=== PATIENT | female | born 1950 | race Caucasian/White ===

== ENCOUNTER 2019-10-09 15:58 | Emergency (ER) | payer OTHER, BC ==
--- OUTSIDE RECORDS SUMMARY | 2019-10-09 16:20 | XMS REPORT | Summary of Care ---
:1950 Author Organization [facility] Address [address] [place] [address] Care Team Providers Name Role Phone Domingo Lizama Primary Care Provider Encounter Details Date Type Department Care Team Description 08/30/2019 Letter (Out) [facility] Domingo Lizama [address] [place] [address] [place] [address] [place], [place] [phone] Allergies Not on Filedocumented as of this encounter (statuses as of 08/30/2019) Medications Not on filedocumented as of this encounter (statuses as of 08/30/2019) Active Problems Not on filedocumented as of this encounter (statuses as of 08/30/2019) Social History Tobacco Use Types Packs/Day Years Used Date Never Assessed Sex Assigned at Date Recorded Not on file Job Start Date Occupation Industry Not on file Not on file Not on file Travel History Travel Start Travel End No recent travel history available. documented as of this encounter Last Filed Vital Signs Not on filedocumented in this encounter Plan of Treatment Health Maintenance Due Date Last Done Comments HEPATITIS C (HCV) SCREEN 1950 DTaP,Tdap,and Td Vaccines (1 - Tdap) 1960 Breast Cancer Screening (MAMMOGRAM) 1989 COLONOSCOPY 1999 Zoster Recombinant Vaccine (SHINGRIX) (1 of 2) 1999 Medicare Wellness Visit 2014 Osteoporosis Screening 2014 PNEUMOCOCCAL VACCINES 65+ (1 of 2 - PCV13) 2014 INFLUENZA VACCINE (#1) 2019 documented as of this encounter Results Not on filedocumented in this encounter Insurance Payer Benefit Plan / Subscriber ID Effective Phone Address T ype Group Dates MEDICARE MEDICARE PART A xxxxxxxxxxx 2014-Pre [phone] [address] [place] Medicare & B sent [phone] [id number] [place] [phone] BCBS OF [facility] [id number] 2014-Pre [phone] [facility] TRADITIONAL sent [phone] [place] [address] documented as of this encounter
--- OUTSIDE RECORDS SUMMARY | 2019-10-09 16:20 | XMS REPORT | Clinical Summary ---
:1950 Author Organization [facility] Address [address] [place] [address] Care Team Providers Name Role Phone Unavailable Primary Care Provider Unavailable Allergies Not on File Medications Not on file Active Problems Not on file Encounters Date Type Specialty Care Team Description 06/28/2019 Lab Lab Ara Thao MD after 10/08/2018 Social History Tobacco Use Types Packs/Day Years Used Date Never Assessed Sex Assigned at Date Recorded Not on file Job Start Date Occupation Industry Not on file Not on file Not on file Travel History Travel Start Travel End No recent travel history available. Last Filed Vital Signs Not on file Plan of Treatment Health Maintenance Due Date Last Done Comments BREAST CANCER SCREENING 1999 COLONOSCOPY SCREENING 1999 SHINGLES VACCINES (#1) 1999 65+ PNEUMOCOCCAL VACCINE (1 of 2 - PCV13) 2014 INFLUENZA VACCINE 12/14/2019 Procedures Procedure Name Priority Date/Time Associated Comments Diagnosis CYTOLOGY Routine 06/28/2019 10:40 Results for this (NON-GYNECOLOGICAL) AM ARSON INVESTIGATOR procedur e are in REQUEST the results section. OPHTHALMOLOGY PATHOGEN Routine 06/28/2019 10:40 R esults for this MULTIPLEX PANEL AM ARSON INVESTIGATOR procedure ar e in the results section. after 10/08/2018 Results Ophthalmology pathogen multiplex panel (06/28/2019 10:40 AM ARSON INVESTIGATOR) Cytomegalovirus by PCR, Not-Detected Not-Detected [facility] Herpes simplex virus 1 Not-Detected Not-Detected [facility] PR[facility]ESTANT by PCR, eye [facility] Herpes simplex virus 2 Not-Detected Not-Detected [place] by PCR, eye [facility] Toxoplasma gondii by Not-Detected Not-Detected [place] PCR, eye [facility] Varicella zoster virus Not-Detected Not-Detected [place] [facility] by PCR, eye [facility] Ophthalmology pathogen See link [facility] multiplex panel below for PDF HOSPITAL Lab ReportComment : Specimen Narrative Performed At [facility], right eye [facility] DEPARTMENT OF PATHOLOGY AND GENOMIC MEDICINE Performing Organization Address City/State/Zipcode Phone Number [facility] DEPARTMENT OF PATHOLOGY AND [address] [place], [place] [address] GENOMIC MEDICINE [facility] [address] [place] [address] [facility] Cytology (non-gynecological) request (06/28/2019 10:40 AM ARSON INVESTIGATOR) [facility] DEPARTMENT OF PATHOLOGY AND GENOMIC MEDICINE Cytology See link below [facility] DEPARTMENT OF (non-gynecological) for PDF Lab PATHOLOGY AND report Report GENOMIC MEDICINE Result status This is Final [facility] DEPARTMENT OF Report for PATHOLOGY AND [id number] GENOMIC MEDICINE Specimen Performing Organization Address City/State/Zipcode Phone Number [facility] DEPARTMENT OF PATHOLOGY AND [address] [place], [place] [address] GENOMIC MEDICINE after 10/08/2018 Insurance Payer Benefit Plan / Subscriber ID Effective Phone Address T ype Group Dates MEDICARE MEDICARE PART A xxxxxxxxxxx 2014-Pre [place], [place] Medicare AND B sent BCBS COMMERCIAL BCBS MEDICARE xxxxxxxxxxxx 2014-Pre Commercial SUPPLEMENT sent Advance Directives For more information, please contact: [phone] Type Date Recorded 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
--- OUTSIDE RECORDS SUMMARY | 2019-10-09 16:20 | XMS REPORT | Summary of Care ---
:1950 Author Organization [facility] Address [address] [place] [address] Care Team Providers Name Role Phone Domingo Lizama Rigo Primary Care Provider Encounter Details Date Type Department Care Team Description 07/22/2019 Orders Only [facility] Doctor Unassigned, No [address] [facility] [place] [address] [address] [place] [phone] Allergies Not on Filedocumented as of this encounter (statuses as of 07/30/2019) Medications Not on filedocumented as of this encounter (statuses as of 07/30/2019) Active Problems Not on filedocumented as of this encounter (statuses as of 07/30/2019) Social History Tobacco Use Types Packs/Day Years [...] (#1) 2019 documented as of this encounter Procedures Procedure Name Priority Date/Time Associated Diagnosis Comme nts REFERRAL- Routine 07/22/2019 12:01 AM CDT REQUEST/RESPONSE documented in this encounter Results Not on filedocumented in this encounter Insurance Payer Benefit Plan / Subscriber ID Effective Phone Address T ype Group Dates MEDICARE MEDICARE PART A xxxxxxxxxxx 2014-Pre [phone] [address] [place] Medicare & B sent [id number] [place] [phone] BCBS OF BCBS [id number] 2014-Pre [phone] [facility] TRADITIONAL sent [phone] [place] [address] documented as of this encounter
--- OUTSIDE RECORDS SUMMARY | 2019-10-09 16:20 | XMS REPORT ---
:1950 Author Organization [facility] t Address [address] [place] [address] Dr. [address]. [address] [place] [address] Care Team Providers Name Role Phone Rigo Lizama Attending Clinician Doctor Unassigned, Name Attending Clinician Unavailable Master CERVANTES LCindy Attending Clinician Payers Payer Name Policy Policy Number Effective Expiration Source Type Date Date MEDICAREMEDICARE PART xxxxxxxxxxx 2014 [facility] Jainism Hryvhwgocehz38/1/2014 [place] [place] xxxxxxxxxxxx 2014 [facility] MEDICARE 00:00:00 Jainism SUPPLEMENTxxxxxxxxxxx x1 2013-[facility] mercial Problems This patient has no known problems. Allergies, Adverse Reactions, Alerts This patient has no known allergies or adverse reactions. Social History Social Habit Start Date Stop Date Quantity Comments Source Sex Assigned At [place] stoalison Jain[facility] Medications This patient has no known medications. Procedures Procedure Date / Time Performed Performing Clinician Sour e OPHTHALMOLOGY PATHOGEN 2019-06-28 10:40:00 Ara Thao MULTIPLEX PANEL CYTOLOGY 2019-06-28 10:40:00 Ara Thao Met hodist (NON-GYNECOLOGICAL) REQUEST Plan of Care Planned Activity Planned Date Details Comments Source Future Scheduled 2019-12-14 INFLUENZA VACCINE Satinder Valdez Test 00:00:00 [code = INFLUENZA VACCINE] Future Scheduled 2014 65+ PNEUMOCOCCAL [place] [facility] Test 00:00:00 VACCINE (1 of 2 - PCV13) [code = 65+ PNEUMOCOCCAL VACCINE (1 of 2 - PCV13)] Future Scheduled 1999 BREAST CANCER Errol Shaw thodist Test 00:00:00 SCREENING [code = BREAST CANCER SCREENING] Future Scheduled 1999 COLONOSCOPY SCREENING Dinesh richmond Jainism Test 00:00:00 [code = COLONOSCOPY SCREENING] Future Scheduled 1999 SHINGLES VACCINES (#1) H estuardo Jainism Test 00:00:00 [code = SHINGLES VACCINES (#1)] Encounters Start End Encounter Admission Attending Care Care Encounter Source Date/Time Date/Time Type Type Clinicians Facility Department ID 2019-08-30 2019-08-30 Letter LUIS M Lizama [id number] 00:00:00 00:00:00 (Out) Domingo ANAYA [id number] 2019-07-22 2019-07-22 Orders Doctor LUIS M [id number] 00:00:00 00:00:00 Only Unassigned, HÉCTOR [id number] [place] [phone] [id number] Results Test Description Test Time Test Comments Results Result Comments Source Cytology (non-gynecological) request 2019-07-01 14:30:52 Test Item Value Reference Range Interpretation Comme nts Case number (test code = [id number]) [id number] Cytology (non-gynecological) report (test See link below for PDF La b Report code = 1178) Result status (test code = 8725707) This is Final Report for [id number] [facility] [id number] 19:01:48 Test Item Value Reference Range Interpretation Comments Cytomegalovirus by PCR, Not-Detected Not-Detected eye (test code = 5000-5) Herpes simplex virus 1 Not-Detected Not-Detected by PCR, eye (test code = 35383-6) Herpes simplex virus 2 Not-Detected Not-Detected by PCR, eye (test code = 88238-0) Toxoplasma gondii by Not-Detected Not-Detected PCR, eye (test code = 47494-8) Varicella zoster virus Not-Detected Not-Detected by PCR, eye (test code = 09040-9) Ophthalmology pathogen See link below Joselo e Number: multiplex panel (test for PDF Lab [id number] code = 4919) Report BRIDGER (test code = BRIDGER) aqueous, right eye Errol Valdez
[2019-10-09] MEDS ORDERED: NA CHLORIDE 0.9% 500 ML ONE (17:11)
[2019-10-09 17:13] LABS: Absolute Lymphocytes (CBC) 2.1 K/uL (0.7-4.9); Basophils % 0.3 % (0-1.3); Hematocrit 48.6 % (36.0-45.0); Lymphocytes % 22.5 % (15.3-44.8); MPV 9.7 fL (7.6-11.3); RBC Red Blood Cell Count 5.23 M/uL (3.86-4.86)
[2019-10-09 17:34] LABS: ALT/SGPT 23 U/L (12-78); AST/SGOT 18 U/L (15-37); Albumin 2.7 g/dL (3.4-5.0); Alkaline Phosphatase 58 U/L (45-117); BUN Blood Urea Nitrogen 18 mg/dL (7-18); Bicarbonate 21 mmol/L (21-32); Bilirubin Direct < 0.1 mg/dL (0-0.2); Bilirubin Total 0.2 mg/dL (0.2-1.0); Glucose Level 109 mg/dL (74-106); Lipase 310 U/L (73-393); Potassium 3.5 mmol/L (3.5-5.1); Protein, Total 6.6 g/dL (6.4-8.2); Sodium Level 143 mmol/L (136-145)
--- NOTE | 2019-10-09 18:08 | RAD REPORT ---
EXAM DESCRIPTION: CT - Abdomen Pelvis W Contrast - 10/09/2019 5:48 pm CLINICAL HISTORY: Diarrhea COMPARISON: Abdomen 1 View (KUB) dated 04/27/2017 TECHNIQUE: Biphasic, helical CT imaging of the abdomen and pelvis was performed following 100 ml non -ionic IV contrast. No oral contrast administered. All CT scans are performed using dose optimization technique as appropriate and may include automated exposure control or mA/KV adjustment according to patient size. FINDINGS: No suspicious findings in the lung bases. Liver is normal size. No solid mass lesion of the liver. Patient has multiple homogeneous fluid atten uation cysts. Largest is in the medial inferior right lobe approximately 4 cm in diameter. No pancrea s or spleen acute finding. Gallbladder and biliary tree are also without suspicious finding. Symmetric renal function is seen with no hydronephrosis or suspicious renal mass. No pyelonephritis o r acute parenchymal process. Small nonobstructing calyx or pyramid calculi present. Bilateral renal c ysts also present. No adrenal abnormalities. No urinary bladder abnormality. Uterus and ovaries also without suspicious finding. Very small hiatal hernia is seen. No acute stomach or small bowel finding. Appendix is normal. No acu te colon finding. No free air, free fluid or inflammatory stranding. No hernia, mass or bulky lymphadenopathy. Disc and bony degenerative changes are present. Partial compression fracture of L4 dates back to at l 2016. No acute vascular finding. IMPRESSION: Contrast enhanced CT abdomen and pelvis showing no acute or emergent finding. Nonacute findings detailed in the body of the report.
[2019-10-09 19:39] VITALS: TEMP 97.9
[2019-10-09 19:40] VITALS: O2SAT 100
[2019-10-09 19:42] VITALS: BP 131/63
--- NOTE | 2019-10-14 14:42 | EDPHYS ---
Physician Documentation [facility] Name: Sara Cannon Age: 69 yrs Sex: Female : 1950 Arrival Date: 10/09/2019 Time: 16:02 Bed 4 Private MD: ED Physician Prosper Cruz HPI: 10/08 19:19 This 69 yrs old Female presents to ER via Ambulatory with complaints of ma2 Nausea/Vomiting/Diarrhea, Abdominal Pain. 19:19 The patient presents to the emergency department with diarrhea. Onset: The ma2 symptoms/episode began/occurred gradually, 1 week(s) ago. Associated signs and symptoms: Pertinent negatives: anorexia, fever, flatulence, hematuria. Severity of symptoms: At their worst the symptoms were moderate in the emergency department the symptoms are unchanged. The patient has not experienced similar symptoms in the past. Historical: - Allergies: 16:09 Depakote; ll1 16:09 PENICILLINS; ll1 16:09 Augmentin; ll1 - PMHx: 16:10 kidney stones; Hypertension; Thyroid problem; ll1 - PSHx: 16:10 breast lumpectomy; cataract repair; ll1 - Immunization history:: Flu vaccine is up to date. - Social history:: Smoking status: Patient denies any tobacco usage or history of. Patient/guardian denies using alcohol, street drugs, tobacco products, Patient/guardian denies using The patient lives with spouse. - Family history:: not pertinent. ROS: 19:19 Constitutional: Negative for fever, chills, and weight loss. ma2 19:19 All other systems are negative. Exam: 19:19 Constitutional: This is a well developed, well nourished patient who is awake, alert, ma2 and in no acute distress. Chest/axilla: Normal chest wall appearance and motion. Nontender with no deformity. No lesions are appreciated. Cardiovascular: Regular rate and rhythm with a normal S1 and S2. No gallops, murmurs, or rubs. Normal PMI, no JVD. No pulse deficits. Respiratory: Lungs have equal breath sounds bilaterally, clear to auscultation and percussion. No rales, rhonchi or wheezes noted. No increased work of breathing, no retractions or nasal flaring. Abdomen/GI: Soft, non-tender, with normal bowel sounds. No distension or tympany. No guarding or rebound. No evidence of tenderness throughout. MS/ Extremity: Pulses equal, no cyanosis. Neurovascular intact. Full, normal range of motion. Neuro: Awake and alert, GCS 15, oriented to person, place, time, and situation. Cranial nerves II-XII grossly intact. Motor strength 5/5 in all extremities. Sensory grossly intact. Cerebellar exam normal. Normal gait. Vital Signs: 16:07 BP 122 / 85; Pulse 89; Resp 17; Temp 97.9; Pulse Ox 98% ; Weight 68.04 kg; Height 5 ft. ll1 2 in. (157.48 cm); Pain 7/10; 17:32 BP 123 / 77; Pulse 67; Resp 15; Pulse Ox 100% ; Pain 0/10; jl7 18:39 BP 143 / 72; Pulse 68; Resp 16; Pulse Ox 100% ; jl7 19:00 BP 131 / 63; Pulse 67; Resp 16; Pulse Ox 100% on R/A; jb4 16:07 Body Mass Index 27.44 (68.04 kg, 157.48 cm) ll1 MDM: 18:01 Patient medically screened. ma2 19:19 Differential diagnosis: gastritis, pancreatitis, appendicitis, diverticulitis. Data ma2 reviewed: vital signs, nurses notes. Counseling: I had a detailed discussion with the patient and/or guardian regarding: the historical points, exam findings, and any diagnostic results supporting the discharge/admit diagnosis, the presence of at least one elevated blood pressure reading (>120/80) during this emergency department visit, the need for outpatient follow up. Response to treatment: the patient's symptoms have markedly improved after treatment. 10/08 16:43 Order name: Basic Metabolic Panel [facility] 10/08 16:43 Order name: CBC with Diff [facility] 10/08 16:43 Order name: Hepatic Function [facility] 10/08 16:43 Order name: Lipase [facility] 10/08 17:19 Order name: CBC with Automated Diff; Complete Time: 17:50 EDMS 10/08 17:35 Order name: Basic Metabolic Panel; Complete Time: 17:50 EDMS 10/08 16:43 Order name: IV Saline Lock; Complete Time: 17:02 [facility] 10/08 16:43 Order name: Labs collected and sent; Complete Time: 17:02 [facility] 10/08 16:43 Order name: CT Abd/Pelvis - IV Contrast Only; Complete Time: 18:56 [facility] 10/08 17:35 Order name: Liver (Hepatic) Function; Complete Time: 17:50 EDCO 10/08 17:35 Order name: Lipase; Complete Time: 17:50 EDCO Administered Medications: 17:10 Drug: NS 0.9% 500 ml Route: IV; Rate: bolus; Site: right forearm; jl7 18:00 Follow up: Response: No adverse reaction; IV Status: Completed infusion; IV Intake: jl7 500ml Disposition: 10/09/19 19:20 Discharged to Home. Impression: Diarrhea, unspecified. - Condition is Stable. - Discharge Instructions: Food Choices to Help Relieve Diarrhea, Adult, Chronic Diarrhea. - Prescriptions for Zofran 4 mg Oral Tablet - take 1 tablet by ORAL route every 12 hours As needed; 20 tablet. - Medication Reconciliation Form, Thank You Letter, Antibiotic Education, Prescription Opioid Use form. - Follow up: Private Physician; When: Tomorrow; Reason: If symptoms return. Signatures: Dispatcher [employer] EDCO Rigoberto Powell MD MD kdr Daniel Douglass, RN RN jb4 Praneeth Stafford RN RN jl7 Prosper Cruz MD MD ma2 Jia Garcia RN RN ll1 Corrections: (The following items were deleted from the chart) 19:34 19:20 10/09/2019 19:20 Discharged to Home. Impression: Diarrhea, unspecified. Condition jb4 is Stable. Forms are Medication Reconciliation Form, Thank You Letter, Antibiotic Education, Prescription Opioid Use. Follow up: Private Physician; When: Tomorrow; Reason: If symptoms return. isabell
--- NOTE | 2019-10-14 14:42 | ER ---
Nurse's Notes [facility] Name: Sara Cannon Age: 69 yrs Sex: Female : 1950 Arrival Date: 10/09/2019 Time: 16:02 Bed 4 Private MD: Diagnosis: Diarrhea, unspecified Presentation: 10/08 16:07 Chief complaint: Patient states: Upper abd pain with nausea and diarrhea for 10 days. ll1 Coronavirus screen: Proceed with normal triage. Patient denies a cough. Patient denies shortness of breath or difficulty breathing. Patient denies measured and/or subjective temperature greater than 100.4F prior to today's visit. Patient denies travel on a cruise ship or to a country the [facility] currently lists as an affected area. Patient denies contact with known and/or suspected case of COVID-19. Ebola Screen: Patient denies travel to an Ebola-affected area in the 21 days before illness onset. Initial Sepsis Screen: Does the patient meet any 2 criteria? No. Patient's initial sepsis screen is negative. Does the patient have a suspected source of infection? Yes: Acute abdominal pain. Risk Assessment: Do you want to hurt yourself or someone else? Patient reports no desire to harm self or others. Onset of symptoms was September 29, 2019. 16:07 Method Of Arrival: Ambulatory ll1 16:07 Acuity: LIYAH 3 ll1 Historical: - Allergies: 16:09 Depakote; ll1 16:09 PENICILLINS; ll1 16:09 Augmentin; ll1 - PMHx: 16:10 kidney stones; Hypertension; Thyroid problem; ll1 - PSHx: 16:10 breast lumpectomy; cataract repair; ll1 - Immunization history:: Flu vaccine is up to date. - Social history:: Smoking status: Patient denies any tobacco usage or history of. Patient/guardian denies using alcohol, street drugs, tobacco products, Patient/guardian denies using The patient lives with spouse. - Family history:: not pertinent. Screenin:09 Abuse screen: Denies threats or abuse. Denies injuries from another. Nutritional sv screening: No deficits noted. Tuberculosis screening: No symptoms or risk factors identified. Fall Risk None identified. Assessment: 16:45 General: Appears in no apparent distress. uncomfortable, Behavior is calm, cooperative, jl7 appropriate for age. Pain: Complains of pain in abdomen diffusely Pain currently is 0 out of 10 on a pain scale. at worst was 7 out of 10 on a pain scale. Quality of pain is described as aching, crampy, Pain began x 10 days Is continuous. Neuro: Level of Consciousness is awake, alert, obeys commands, Oriented to person, place, time, situation. Cardiovascular: Patient's skin is warm and dry. Respiratory: Airway is patent Respiratory effort is even, unlabored, Respiratory pattern is regular, symmetrical. GI: Abdomen is round non-distended, Bowel sounds present X 4 quads. Abd is soft and non tender X 4 quads. Reports diarrhea. : No signs and/or symptoms were reported regarding the genitourinary system. Denies burning with urination, pain. Derm: Skin is pink, warm \T\ dry. 17:45 Reassessment: Patient appears in no apparent distress at this time. No changes from jl7 previously documented assessment. Patient and/or family updated on plan of care and expected duration. Pain level reassessed. Patient is alert, oriented x 3, equal unlabored respirations, skin warm/dry/pink. 18:39 Reassessment: Patient appears in no apparent distress at this time. No changes from jl7 previously documented assessment. Patient and/or family updated on plan of care and expected duration. Pain level reassessed. Patient is alert, oriented x 3, equal unlabored respirations, skin warm/dry/pink. 19:08 Reassessment: Patient appears in no apparent distress at this time. Patient and/or jb4 family updated on plan of care and expected duration. Pain level reassessed. Patient is alert, oriented x 3, equal unlabored respirations, skin warm/dry/pink. Provider at the bedside updating patient on plan of care. Pt instructed to call her ride home. 19:33 Reassessment: Patient appears in no apparent distress at this time. Patient and/or jb4 family updated on plan of care and expected duration. Pain level reassessed. Patient is alert, oriented x 3, equal unlabored respirations, skin warm/dry/pink. PT verbalized understanding of d/c and follow up instructions. Denies questions or concerns. Assisted to vehicle via wheelchair. Vital Signs: 16:07 BP 122 / 85; Pulse 89; Resp 17; Temp 97.9; Pulse Ox 98% ; Weight 68.04 kg; Height 5 ft. ll1 2 in. (157.48 cm); Pain 7/10; 17:32 BP 123 / 77; Pulse 67; Resp 15; Pulse Ox 100% ; Pain 0/10; jl7 18:39 BP 143 / 72; Pulse 68; Resp 16; Pulse Ox 100% ; jl7 19:00 BP 131 / 63; Pulse 67; Resp 16; Pulse Ox 100% on R/A; jb4 16:07 Body Mass Index 27.44 (68.04 kg, 157.48 cm) ll1 ED Course: 16:02 Patient arrived in ED. fj1 16:08 Triage completed. ll1 16:10 Arm band placed on. ll1 16:16 Praneeth Stafford RN is Primary Nurse. jl7 16:34 Rigoberto Powell MD is Attending Physician. kdr 17:05 Missed attempt(s): 22 gauge in left wrist. Bleeding controlled, band aid applied, jl7 catheter tip intact. 17:09 Patient has correct armband on for positive identification. Placed in gown. Bed in low sv position. Call light in reach. Pulse ox on. NIBP on. Door closed. Warm blanket given. Head of bed elevated. 17:15 Initial lab(s) drawn, by mo, sent to lab. Inserted saline lock: 22 gauge in right jl7 forearm, using aseptic technique. Blood collected. 17:20 Basic Metabolic Panel Sent. jl7 17:20 CBC with Diff Sent. jl7 17:20 Hepatic Function Sent. jl7 17:20 Lipase Sent. jl7 18:01 Attending Physician role handed off by Rigoberto Powell MD ma2 18:01 Prosper Cruz MD is Attending Physician. ma2 18:07 CT Abd/Pelvis - IV Contrast Only In Process Unspecified. EDMS 18:39 Awaiting radiology results. jl7 19:02 Report given to Humphrey ANN and Jose ANN. sv 19:33 No provider procedures requiring assistance completed. IV discontinued, intact, jb4 bleeding controlled, No redness/swelling at site. Pressure dressing applied. Administered Medications: 17:10 Drug: NS 0.9% 500 ml Route: IV; Rate: bolus; Site: right forearm; jl7 18:00 Follow up: Response: No adverse reaction; IV Status: Completed infusion; IV Intake: jl7 500ml Intake: 18:00 IV: 500ml; Total: 500ml. jl7 Outcome: 19:20 Discharge ordered by . isabell 19:33 Discharged to home via wheelchair, with family. jb4 19:33 Condition: stable 19:33 Discharge instructions given to patient, Instructed on discharge instructions, follow up and referral plans. medication usage, Demonstrated understanding of instructions, follow-up care, medications, Prescriptions given X 1. 19:34 Patient left the ED. jb4 Signatures: Dispatcher [employer] EDMS Lorraine Dhaliwal, RN RN Rigoberto Francois MD MD kdr Daniel Douglass RN RN jb4 Praneeth Stafford RN RN jl7 Prosper Cruz MD MD ma2 Brian Sanchez Lynsay, RN RN ll1
== END 2019-10-09 19:34 | disposition home or self-care (01) ==
LOC: ER 15:58
DX: R19.7 Diarrhea, unspecified (principal); I10 Essential (primary) hypertension; Z88.0 Allergy status to penicillin; Z88.1 Allergy status to other antibiotic agents; Z88.8 Allergy status to other drugs, medicaments and biological substances
CPT/HCPCS: 85025; 80048; 36415; 80076; 83690; 74177; 96360; 99284; Q9967; J7040

== ENCOUNTER 2019-10-22 12:45 | Inpatient (IN) | payer OTHER, BC ==
[2019-10-22] MEDS ORDERED: PROMETHAZINE INJ 25 MG/ML AMP ONE (14:45)
[2019-10-22] MEDS ORDERED: NA CHLORIDE 0.9% 1,000 ML ONE (14:45)
--- NOTE | 2019-10-22 14:55 | RAD REPORT ---
EXAM DESCRIPTION: RAD - Chest Single View - 10/22/2019 2:46 pm CLINICAL HISTORY: dehydration COMPARISON: April 2015 TECHNIQUE: AP portable chest image was obtained 10/22/2019 2:46 pm . FINDINGS: Lungs are clear of acute finding. Small granuloma upper right lung field is unchanged. No mediastinal or hilar lymphadenopathy. Interstitial pattern matches comparison. Heart and vasculature are normal. No measurable pleural effusion and no pneumothorax. No acute bony abnormality seen. No ac brenda aortic findings suspected. IMPRESSION: No acute cardiopulmonary process. No significant change from comparison.
[2019-10-22 15:08] LABS: Absolute Lymphocytes (CBC) 2.6 K/uL (0.7-4.9); Basophils % 0.5 % (0-1.3); Hematocrit 47.1 % (36.0-45.0); Lymphocytes % 21.2 % (15.3-44.8); MPV 9.7 fL (7.6-11.3); RBC Red Blood Cell Count 5.08 M/uL (3.86-4.86)
[2019-10-22 15:45] LABS: ALT/SGPT 26 U/L (12-78); Albumin 2.5 g/dL (3.4-5.0); Alkaline Phosphatase 101 U/L (45-117); Amylase 50 U/L (25-115); BUN Blood Urea Nitrogen 13 mg/dL (7-18); Bicarbonate 18 mmol/L (21-32); Bilirubin Direct < 0.1 mg/dL (0-0.2); Bilirubin Total 0.5 mg/dL (0.2-1.0); Creatine Phosphokinase 80 U/L (26-192); Glucose Level 71 mg/dL (74-106); Lipase 297 U/L (73-393); Protein, Total 6.9 g/dL (6.4-8.2); Sodium Level 138 mmol/L (136-145); Thyroid Stimulating Hormone 0.235 uIU/mL (0.360-3.740)
[2019-10-22 15:52] LABS: AST/SGOT 36 U/L (15-37); Potassium 3.8 mmol/L (3.5-5.1)
[2019-10-22 15:55] LABS: Protime INR 1.06
[2019-10-22] MEDS ORDERED: D50W 25 GM/50 ML SYRINGE/VIAL IV ONE (15:59)
[2019-10-22 16:39] LABS: Urine Bacteria <20 /HPF (<20); Urine Culture Reflex Order NOT NEEDED; Urine Mucus 1+ /HPF (NONE SEEN); Urine RBC <5 /HPF (NONE SEEN)
--- NOTE | 2019-10-22 17:15 | EDPHYS ---
Physician Documentation [facility] Name: Sara Cannon Age: 69 yrs Sex: Female : 1950 Arrival Date: 10/22/2019 Time: 12:47 Bed 15 Private MD: ED Physician Rigoberto Powell HPI: 10/21 14:31 This 69 yrs old Female presents to ER via Ambulatory with complaints of snw Diarrhea. 14:31 The patient presents to the emergency department with nausea, diarrhea, that is snw continuous, since June, pt sees Dr. Buck, Dr. 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 Onset: The symptoms/episode began/occurred gradually, 5 month(s) ago, and became persistent. Possible causes: flare up of bowel problem, pt is scheduled for UGI on Monday. The symptoms are aggravated by food , The symptoms are alleviated by nothing. Associated signs and symptoms: Pertinent positives: diarrhea, Pertinent negatives: constipation, fever, GI bleeding. Severity of symptoms: At their worst the symptoms were severe in the emergency department the symptoms have improved. The patient has experienced similar episodes in the past. 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 Historical: - Allergies: 13:10 Depakote; tw2 13:10 Augmentin; tw2 13:10 PENICILLINS; tw2 - PMHx: 13:10 Hypertension; Kidney stones; Thyroid problem; tw2 - PSHx: 13:10 breast lumpectomy; cataract repair; tw2 - Immunization history:: Adult Immunizations. - Social history:: Smoking status: . ROS: 14:29 Constitutional: Negative for fever, chills, and weight loss, Eyes: Negative for injury, snw pain, redness, and discharge, ENT: Negative for injury, pain, and discharge, Neck: Negative for injury, pain, and swelling, Cardiovascular: Negative for chest pain, palpitations, and edema, Respiratory: Negative for shortness of breath, cough, wheezing, and pleuritic chest pain, Back: Negative for injury and pain, : Negative for injury, bleeding, discharge, and swelling, MS/Extremity: Negative for injury and deformity, Skin: Negative for injury, rash, and discoloration, Neuro: Negative for headache, weakness, numbness, tingling, and seizure, Psych: Negative for depression, anxiety, suicide ideation, homicidal ideation, and hallucinations. 14:29 Abdomen/GI: Positive for diarrhea, abdominal cramps. Exam: 14:28 Head/Face: Normocephalic, atraumatic. Eyes: Pupils equal round and reactive to light, snw extra-ocular motions intact. Lids and lashes normal. Conjunctiva and sclera are non-icteric and not injected. Cornea within normal limits. Periorbital areas with no swelling, redness, or edema. ENT: Nares patent. No nasal discharge, no septal abnormalities noted. Tympanic membranes are normal and external auditory canals are clear. Oropharynx with no redness, swelling, or masses, exudates, or evidence of obstruction, uvula midline. Mucous membranes moist. Neck: Trachea midline, no thyromegaly or masses palpated, and no cervical lymphadenopathy. Supple, full range of motion without nuchal rigidity, or vertebral point tenderness. No Meningismus. Chest/axilla: Normal chest wall appearance and motion. Nontender with no deformity. No lesions are appreciated. Cardiovascular: Regular rate and rhythm with a normal S1 and S2. No gallops, murmurs, or rubs. Normal PMI, no JVD. No pulse deficits. Respiratory: Lungs have equal breath sounds bilaterally, clear to auscultation and percussion. No rales, rhonchi or wheezes noted. No increased work of breathing, no retractions or nasal flaring. 14:28 Back: No spinal tenderness. No costovertebral tenderness. Full range of motion. Skin: Warm, dry with normal turgor. Normal color with no rashes, no lesions, and no evidence of cellulitis. MS/ Extremity: Pulses equal, no cyanosis. Neurovascular intact. Full, normal range of motion. Neuro: Awake and alert, GCS 15, oriented to person, place, time, and situation. Cranial nerves II-XII grossly intact. Motor strength 5/5 in all extremities. Sensory grossly intact. Cerebellar exam normal. Normal gait. Psych: Awake, alert, with orientation to person, place and time. Behavior, mood, and affect are within normal limits. 14:28 Constitutional: The patient appears alert, awake, anxious, pale. 14:28 Abdomen/GI: Inspection: abdomen appears normal, Bowel sounds: normal, Palpation: abdomen is soft and non-tender, Rectal exam: Stool: guaiac negative, green, tenderness, that is mild, the exam is chaperoned by the nurse. 15:32 ECG was reviewed by the Attending Physician. snw Vital Signs: 13:06 BP 107 / 86; Pulse 67; Resp 17; Temp 97.9(O); Pulse Ox 99% on R/A; Weight 65.77 kg (R); tw2 Height 5 ft. 0 in. (152.40 cm); Pain 0/10; 13:18 BP 99 / 35; Pulse 64; Resp 18; Pulse Ox 100% ; dh4 15:55 BP 111 / 53; Pulse 58; Resp 21; Pulse Ox 100% ; dh4 17:00 BP 112 / 57; Pulse 62; Resp 15; Pulse Ox 10% ; ah 18:00 BP 99 / 49; Pulse 61; Resp 17; Pulse Ox 100% ; ah 19:00 BP 99 / 38; Pulse 60; Resp 16; Pulse Ox 100% ; ah 19:43 BP 114 / 83; Pulse 57; Resp 16; Pulse Ox 100% ; ah 13:06 Body Mass Index 28.32 (65.77 kg, 152.40 cm) tw2 MDM: 14:19 Patient medically screened. snw 16:55 Data reviewed: vital signs, nurses notes. Data interpreted: Pulse oximetry: on room air snw is 100 %. Interpretation: normal. Counseling: I had a detailed discussion with the patient and/or guardian regarding: the historical points, exam findings, and any diagnostic results supporting the discharge/admit diagnosis, lab results, radiology results, the need for further work-up and treatment in the hospital. Physician consultation: Vic Buck MD was called at 16:55, regarding consult. 16:55 Physician consultation: Hunter Way MD was called at 16:56, regarding admission, to [facility] the medical/surgical unit. 17:28 ED course: Dr. Way in evaluating pt. [facility] 10/21 14:05 Order name: T\T\S [facility] 10/21 14:05 Order name: Amylase, Serum; Complete Time: 16:00 [facility] 10/21 14:05 Order name: Basic Metabolic Panel; Complete Time: 16:00 [facility] 10/21 14:05 Order name: Blood Culture Adult (2) [facility] 10/21 14:05 Order name: CBC with Diff; Complete Time: 15:40 snw 10/21 14:05 Order name: Ckmb; Complete Time: 16:00 w 10/21 14:05 Order name: CPK; Complete Time: 16:00 w 10/21 14:05 Order name: Lactate; Complete Time: 15:40 w 10/21 14:05 Order name: LFT's; Complete Time: 16:00 w 10/21 14:05 Order name: Lipase; Complete Time: 16:00 w 10/21 14:05 Order name: Procalcitonin; Complete Time: 16:11 w 10/21 14:05 Order name: Protime (+inr); Complete Time: 16:11 w 10/21 14:05 Order name: Ptt, Activated; Complete Time: 16:11 w 10/21 14:05 Order name: Urine Microscopic Only; Complete Time: 16:45 w 10/21 14:05 Order name: TSH; Complete Time: 16:00 w 10/21 14:05 Order name: Stool Culture [facility] 10/21 14:05 Order name: Ova And Parasites [facility] 10/21 14:05 Order name: Occult Blood [facility] 10/21 14:05 Order name: Fecal Leukocyte Stain [facility] 10/21 14:05 Order name: CDIFF [facility] 10/21 15:08 Order name: Glucose, Ancillary Testing; Complete Time: 15:14 [facility] 10/21 15:19 Order name: Urinalysis 10/21 15:30 Order name: Phosphorus; Complete Time: 16:54 [facility] 10/21 16:06 Order name: ABO/RH no charge; Complete Time: 16:11 [facility] 10/21 16:49 Order name: T4,Total; Complete Time: 18:08 [facility] 10/21 16:50 Order name: Add On-Lab [facility] 10/21 16:53 Order name: Antibody Identification [facility] 10/21 16:54 Order name: [place] Consultation [facility] 10/21 17:10 Order name: Add On-Lab [facility] 10/21 17:38 Order name: T3 Free; Complete Time: 18:08 [facility] 10/21 14:05 Order name: Chest Single View XRAY; Complete Time: 15:14 w 10/21 14:05 Order name: Accucheck; Complete Time: 15:30 snw 10/21 14:05 Order name: Cardiac monitoring; Complete Time: 15:37 snw 10/21 14:05 Order name: EKG - Nurse/Tech; Complete Time: 16:46 snw 10/21 14:05 Order name: IV Saline Lock - Large Bore; Complete Time: 16:46 snw 10/21 14:05 Order name: Labs collected and sent; Complete Time: 16:46 snw 10/21 14:05 Order name: O2 Per Protocol; Complete Time: 16:47 snw 10/21 14:05 Order name: O2 Sat Monitoring; Complete Time: 16:47 snw 10/21 14:05 Order name: Urine Dipstick-Ancillary (obtain specimen); Complete Time: 16:47 snw 10/21 18:47 Order name: CONS Pharmacy Consult EDMS 10/21 18:47 Order name: CONS Physician Consult EDMS 10/21 18:47 Order name: Regular EDMS 10/21 18:47 Order name: Liver (Hepatic) Function EDMS 10/21 18:47 Order name: CBC with Automated Diff EDMS 10/21 18:47 Order name: CBC with Automated Diff EDMS 10/21 18:47 Order name: Comprehensive Metabolic Panel EDMS 10/21 18:47 Order name: Comprehensive Metabolic Panel EDMS 10/21 18:47 Order name: Lipid Profile EDMS 10/21 18:47 Order name: Lipid Profile EDMS 10/21 18:49 Order name: LEONARD IFA Screen w/Reflex EDMS 10/21 18:49 Order name: Fecal Leukocyte Stain EDMS EC:32 Rate is 55 beats/min. Rhythm is regular. OR interval is normal. QRS interval is normal. snw No Q waves. Clinical impression: NSR w/ Non-specific ST/T Changes and Sinus bradycardia. Administered Medications: 15:15 Drug: Phenergan 6.25 mg Route: IVP; Site: right antecubital; 16:47 Follow up: Response: No adverse reaction ah 21:26 Follow up: Response: No adverse reaction 15:15 Drug: NS 0.9% 1000 ml Route: IV; Rate: 125 ml/hr; Site: right antecubital; ah 16:12 Drug: D50W 50 ml Route: IVP; Site: right antecubital; Disposition: 10/22 13:20 I agree with the assessment and plan of care. kdr Disposition: 10/22/19 17:[address] by Hunter [address] for Observation. Preliminary diagnosis are Diarrhea, unspecified, Acidosis, Hyperthyroid state , Dehydration. - Bed requested for Telemetry/MedSurg (observation). - Status is Observation. mw2 - Condition is Stable. - Problem is an ongoing problem. - Symptoms have worsened. Signatures: Dispatcher [employer] EDMS Rigoberto Powell MD MD [facility] Beth Johnson, SURGICAL ASSISTANT-C SURGICAL ASSISTANT-Csnw Tamar Rodrigues, RN RN tl1 Annamarie Lloyd RN RN 2 Phan Walsh mw2 Sharon Garcia RN RN Corrections: (The following items were deleted from the chart) 10/21 19:25 17:15 Hospitalization Ordered by Hunter Way MD for Observation. Preliminary tl1 diagnosis is Diarrhea, unspecified; Acidosis; Hyperthyroid state ; Dehydration. Bed requested for Telemetry/MedSurg (observation). Status is Observation. Condition is Stable. Problem is an ongoing problem. Symptoms have worsened. snw 21:25 19:25 10/22/2019 17:15 Hospitalization Ordered by Hunter Way MD for Observation. mw2 Preliminary diagnosis is Diarrhea, unspecified; Acidosis; Hyperthyroid state ; Dehydration. Bed requested for Telemetry/MedSurg (observation). Status is Observation. Condition is Stable. Problem is an ongoing problem. Symptoms have worsened. tl1
--- NOTE | 2019-10-22 17:15 | ER ---
Nurse's Notes [facility] Name: Sara Cannon Age: 69 yrs Sex: Female : 1950 Arrival Date: 10/22/2019 Time: 12:47 Bed 15 Private MD: Diagnosis: Diarrhea, unspecified;Acidosis;Hyperthyroid state ;Dehydration Presentation: 10/21 13:06 Chief complaint: Spouse and/or significant other states: she has had diarrhea for a tw2 month, she came here on the of the month, and it wasn't gallbladder, she is scheduled for upper GI this coming Monday, they are suspecting Crohn's disease, her last meal was 2 weeks ago, water and gatoraid go right through her. Coronavirus screen: Patient denies a cough. Patient denies shortness of breath or difficulty breathing. Patient denies measured and/or subjective temperature greater than 100.4F prior to today's visit. Patient denies travel on a cruise ship or to a country the [facility] currently lists as an affected area. Patient denies contact with known and/or suspected case of COVID-19. Ebola Screen: Patient denies travel to an Ebola-affected area in the 21 days before illness onset. Initial Sepsis Screen: Does the patient meet any 2 criteria? No. Patient's initial sepsis screen is negative. Does the patient have a suspected source of infection? No. Patient's initial sepsis screen is negative. Risk Assessment: Do you want to hurt yourself or someone else? Patient reports no desire to harm self or others. Onset of symptoms was October 22, 2019. 13:06 Method Of Arrival: Ambulatory tw2 13:06 Acuity: LIYAH 3 tw2 Triage Assessment: 13:09 General: Appears in no apparent distress. well groomed, Behavior is calm, cooperative, tw2 appropriate for age. Pain: Denies pain. GI: Reports diarrhea, intolerance of fluids, intolerance of food, nausea. Historical: - Allergies: 13:10 Depakote; tw2 13:10 Augmentin; tw2 13:10 PENICILLINS; tw2 - PMHx: 13:10 Hypertension; Kidney stones; Thyroid problem; tw2 - PSHx: 13:10 breast lumpectomy; cataract repair; tw2 - Immunization history:: Adult Immunizations. - Social history:: Smoking status: . Screenin:13 Abuse screen: Denies threats or abuse. Nutritional screening: No deficits noted. ah Tuberculosis screening: No symptoms or risk factors identified. Fall Risk None identified. Assessment: 13:15 General: Appears in no apparent distress. Behavior is calm, cooperative, appropriate ah for age. Pain: Denies pain. Neuro: Level of Consciousness is awake, alert, obeys commands, Oriented to person, place, time. Cardiovascular: Capillary refill < 3 seconds Patient's skin is warm and dry. Respiratory: Airway is patent Respiratory effort is even, unlabored, Respiratory pattern is regular, symmetrical. GI: Abdomen is non-distended, Stools are reported to be diarrhea. Last BM was October 22, 2019. Bowel sounds present X 4 quads. Abd is soft and non tender. : Urine is clear. Derm: Skin is intact, is healthy with good turgor. 14:15 Reassessment: Patient and/or family updated on plan of care and expected duration. Pain ah level reassessed. Patient is alert, oriented x 3, equal unlabored respirations, skin warm/dry/pink. 15:15 Reassessment: Patient and/or family updated on plan of care and expected duration. Pain ah level reassessed. Patient is alert, oriented x 3, equal unlabored respirations, skin warm/dry/pink. fluids started and medication given for nausea. Pt tolerated well. 16:15 Reassessment: Patient and/or family updated on plan of care and expected duration. Pain ah level reassessed. Patient is alert, oriented x 3, equal unlabored respirations, skin warm/dry/pink. Pt tolerated phenergan well. NO adverse reactions noted. 17:15 Reassessment: Patient and/or family updated on plan of care and expected duration. Pain ah level reassessed. Patient is alert, oriented x 3, equal unlabored respirations, skin warm/dry/pink. awaiting on decision for pt status. 18:15 Reassessment: Patient and/or family updated on plan of care and expected duration. Pain ah level reassessed. Patient is alert, oriented x 3, equal unlabored respirations, skin warm/dry/pink. Pt to be admitted. Awaiting on room assignment. No needs voiced at this time. 19:15 Reassessment: No changes from previously documented assessment. Patient and/or family ah updated on plan of care and expected duration. Pain level reassessed. Patient is alert, oriented x 3, equal unlabored respirations, skin warm/dry/pink. 19:50 Reassessment:. ah 20:15 Reassessment: Patient and/or family updated on plan of care and expected duration. Pain ah level reassessed. Patient is alert, oriented x 3, equal unlabored respirations, skin warm/dry/pink. 21:45 Reassessment: spoke with Megha ANN, reported the primary Nurse ANTONIO ANN reports patient sg had not provided a stool specimen, S[facility] [place] reports they will obtain specimen and reprint lab labels. Vital Signs: 13:06 BP 107 / 86; Pulse 67; Resp 17; Temp 97.9(O); Pulse Ox 99% on R/A; Weight 65.77 kg (R); tw2 Height 5 ft. 0 in. (152.40 cm); Pain 0/10; 13:18 BP 99 / 35; Pulse 64; Resp 18; Pulse Ox 100% ; dh4 15:55 BP 111 / 53; Pulse 58; Resp 21; Pulse Ox 100% ; dh4 17:00 BP 112 / 57; Pulse 62; Resp 15; Pulse Ox 10% ; ah 18:00 BP 99 / 49; Pulse 61; Resp 17; Pulse Ox 100% ; ah 19:00 BP 99 / 38; Pulse 60; Resp 16; Pulse Ox 100% ; ah 19:43 BP 114 / 83; Pulse 57; Resp 16; Pulse Ox 100% ; ah 13:06 Body Mass Index 28.32 (65.77 kg, 152.40 cm) tw2 ED Course: 12:47 Patient arrived in ED. fj1 13:09 Triage completed. tw2 13:09 Arm band placed on. tw2 13:16 Antonio Garcia, RN is Primary Nurse. ah 13:59 Beth Johnson [facility]-C [facility] snw 13:59 Rigoberto Powell MD is Attending Physician. snw 14:46 Chest Single View XRAY In Process Unspecified. EDMS 17:[address] MD is Hospitalizing Provider. snw 19:14 Patient has correct armband on for positive identification. Placed in gown. Bed in low ah position. Call light in reach. Side rails up X2. Pulse ox on. NIBP on. 20:07 No provider procedures requiring assistance completed. Patient admitted, IV remains in place. Administered Medications: 15:15 Drug: Phenergan 6.25 mg Route: IVP; Site: right antecubital; 16:47 Follow up: Response: No adverse reaction 21:26 Follow up: Response: No adverse reaction 15:15 Drug: NS 0.9% 1000 ml Route: IV; Rate: 125 ml/hr; Site: right antecubital; 16:12 Drug: D50W 50 ml Route: IVP; Site: right antecubital; Outcome: 17:15 Decision to Hospitalize by Provider. snw 20:08 Admitted to Tele accompanied by tech, via stretcher, room 214, with chart, Report called to Danitza 20:08 Condition: stable 20:08 Instructed on the need for admit. 21:25 Patient left the ED. mw2 Signatures: Dispatcher [employer] EDMS Tony Solomon, RN RN Beth Johnson, PRESIDENT & CEO-C PRESIDENT & CEO-Csnw Annamarie Lloyd, RN RN 2 Phan Walsh mw2 Brian Sanchez fj1 Antonio Garcia RN RN Colten Carpenter 4
[2019-10-22 17:33] LABS: T4,Total 12.1 ug/dL (4.8-13.9)
[2019-10-22 18:02] LABS: T3 Free 1.77 pg/mL (2.18-3.98)
--- OUTSIDE RECORDS SUMMARY | 2019-10-22 18:24 | XMS REPORT | Clinical Summary ---
:1950 Author Organization [facility] Address [address] [place] [address] Care Team Providers Name Role Phone Unavailable Primary Care Provider Unavailable Allergies Not on File Medications Not on file Active Problems Not on file Encounters Date Type Specialty Care Team Description 06/28/2019 Lab Lab Ara Thao MD after 10/21/2018 Social History Tobacco Use Types Packs/Day Years [...] 06/28/2019 10:40 Results for this (NON-GYNECOLOGICAL) AM [employer]EIGN CAR MECH[employer]IC procedur e are in REQUEST the results section. OPHTHALMOLOGY PATHOGEN Routine 06/28/2019 10:40 R esults for this MULTIPLEX PANEL AM [employer]EIGN [employer] MECH[employer]IC procedure ar e in the results section. after 10/21/2018 Results Ophthalmology pathogen multiplex panel (06/28/2019 10:40 AM FOREIGN CAR MECHANIC) Cytomegalovirus by PCR, Not-Detected Not-Detected [facility] Herpes simplex virus 1 Not-Detected Not-Detected NAM MU-ISM by PCR, eye [facility] Herpes simplex virus 2 Not-Detected Not-Detected KIRWIN MU-ISM by PCR, eye [facility] Toxoplasma gondii by Not-Detected Not-Detected KIRWIN [facility]ISM PCR, eye [facility] Varicella zoster virus Not-Detected Not-Detected KIRWIN [facility]-ISM by PCR, eye [facility] Ophthalmology pathogen See link KIRWIN [facility]-ISM multiplex panel below for PDF HOSPITAL Lab ReportComment : Specimen Narrative Performed At [facility], right eye [facility] DEPARTMENT OF PATHOLOGY AND GENOMIC MEDICINE Performing Organization Address City/State/Zipcode Phone Number [facility] DEPARTMENT OF PATHOLOGY AND [address] [place], [place] [address] GENOMIC MEDICINE [facility] [address] [place] [address] [facility] Cytology (non-gynecological) request (06/28/2019 10:40 AM FOREIGN CAR MECHANIC) [facility] DEPARTMENT OF PATHOLOGY AND GENOMIC MEDICINE Cytology See link below [facility] DEPARTMENT OF (non-gynecological) for PDF Lab PATHOLOGY AND report Report GENOMIC MEDICINE Result status This is Final [facility] DEPARTMENT OF Report for PATHOLOGY AND [id number] GENOMIC MEDICINE Specimen Performing Organization Address City/State/Zipcode Phone Number [facility] DEPARTMENT OF PATHOLOGY AND [address] [place], [place] [address] GENOMIC MEDICINE after 10/21/2018 Insurance Payer Benefit Plan / Subscriber ID Effective Phone Address T ype Group Dates MEDICARE MEDICARE PART A xxxxxxxxxxx 2014-Pre [place], [place] Medicare AND B sent BCBS COMMERCIAL BCBS MEDICARE xxxxxxxxxxxx 2014-Pre Commercial SUPPLEMENT sent Advance Directives For more information, please contact: [phone] Type Date Recorded Patient Resort Host Explanati on Advance Directives, Living Will and Medical Power of Whip [place]
--- OUTSIDE RECORDS SUMMARY | 2019-10-22 18:24 | XMS REPORT | Continuity of Care Document ---
:1950 Author Organization [facility] t Address [address] [place] [address] [address]. [address] [place] [address] Care Team Providers Name Role Phone Rigo Lizama Attending Clinician Doctor Unassigned, Name Attending Clinician Unavailable Deanna Thao MD Attending Clinician Payers Payer Name Policy Policy Number Effective Expiration Source Type Date Date MEDICAREMEDICARE PART xxxxxxxxxxx 2014 [facility] AND 00:00:00 [id number] [place] COMMERCIAL[place]BS xxxxxxxxxxxx 2014 [place] MEDICARE 00:00:00 Quaker SUPPLEMENTxxxxxxxxxxx x1 2013-[facility] mercial Problems This patient has no known problems. Allergies, Adverse Reactions, Alerts This patient has no known allergies or adverse reactions. Social History Social Habit Start Date Stop Date Quantity Comments Source Sex Assigned At [place] [facility] Medications This patient has no known medications. Procedures Procedure Date / Time Performed Performing Clinician Sourc e OPHTHALMOLOGY PATHOGEN 2019-06-28 10:40:00 Ara Thao MULTIPLEX PANEL CYTOLOGY 2019-06-28 10:40:00 Ara Thao Met pardeepist (NON-GYNECOLOGICAL) REQUEST Plan of Care Planned Activity Planned Date Details Comments Source Future Scheduled 2019-12-14 INFLUENZA VACCINE Satinder Valdez Test 00:00:00 [code = INFLUENZA VACCINE] Future Scheduled 2014 65+ PNEUMOCOCCAL Norton [facility] Test 00:00:00 VACCINE (1 of 2 - PCV13) [code = 65+ PNEUMOCOCCAL VACCINE (1 of 2 - PCV13)] Future Scheduled 1999 BREAST CANCER Errol Shaw [facility]ist Test 00:00:00 SCREENING [code = BREAST CANCER SCREENING] Future Scheduled 1999 COLONOSCOPY SCREENING Dinesh richmond [facility] Test 00:00:00 [code = COLONOSCOPY SCREENING] Future Scheduled 1999 SHINGLES VACCINES (#1) H estuardo [facility]aker Test 00:00:00 [code = SHINGLES VACCINES (#1)] Encounters Start End Encounter Admission Attending Care Care Encounter Source Date/Time Date/Time Type Type Clinicians Facility Department ID 2019-08-30 2019-08-30 Letter LUIS M Lizama [id number] 00:00:00 00:00:00 (Out) Domingo ANAYA [id number] [id number] 2019-07-22 2019-07-22 Orders Doctor LUIS M [id number] 00:00:00 00:00:00 Only Unassigned, HÉCTOR [id number] [place] [id number] [id number] Results Test Description Test Time Test Comments Results Result Comments Source Cytology (non-gynecological) request 2019-07-01 14:30:52 Test Item Value Reference Range Interpretation Comme nts Case number (test code = [id number]) [id number] Cytology (non-gynecological) report (test See link below for PDF La b Report code = 1178) Result status (test code = 7586990) This is Final Report for [id number] [place] [facility] multiplex [id number] 19:01:48 Test Item Value Reference Range Interpretation Comments Cytomegalovirus by PCR, Not-Detected Not-Detected eye (test code = 5000-5) Herpes simplex virus 1 Not-Detected Not-Detected by PCR, eye (test code = 92681-0) Herpes simplex virus 2 Not-Detected Not-Detected by PCR, eye (test code = 93242-2) Toxoplasma gondii by Not-Detected Not-Detected PCR, eye (test code = 92047-4) Varicella zoster virus Not-Detected Not-Detected by PCR, eye (test code = 79234-5) Ophthalmology pathogen See link below Joselo e Number: multiplex panel (test for PDF Lab [id number] code = 4919) Report BRIDGER (test code = BRIDGER) aqueous, right eye Errol Valdez
[2019-10-22] MEDS ORDERED: MORPHINE 2 MG/ML SYR IV PRN (18:43)
[2019-10-22] MEDS ORDERED: ONDANSETRON 4 MG/2 ML VIAL IV PRN ×2 (18:43→18:58)
--- NOTE | 2019-10-22 18:56 | P.HP ---
Certification for Inpatient Patient admitted to: Observation With expected LOS: <2 Midnights Patient will require the following post-hospital care: Home Health Services Practitioner: I am a practitioner with admitting privileges, knowledge of patient current condition, hospital course, and medical plan of care. Services: Services provided to patient in accordance with Admission requirements found in Title 42 Section 412.3 of the Code of Federal Regulations Patient History Date of Service: 10/22/19 Reason for admission: Diarrhea weakness History of Present Illness: 69-year-old female with history of hypertension, renal stones, hypothyroidism admitted for admitted for weakness and worsening diarrhea. Patient states her diarrhea has been ongoing for the last 5 months. She has seen Dr. Boyce as scheduled for EGD and colonoscopy this Monday. Diarrhea continued to worsen and became associated with postprandial episode since the last 1 week. She was also be happy weakness and she was brought in by daughter to the requesting admission. In the ED she was noted with initial blood pressure of 1/10 but later dropped to a systolic of 90s. She was also noted with hypoglycemia of 62 as well as metabolic acidosis serum bicarb of 18. She has been admitted for correction of her electrolytes as well as persistent diarrhea. She denies any abdominal g she denies any nausea or vomiting. Home medications list reviewed: Yes (Pending by family) - Past Medical/Surgical History Has patient received pneumonia vaccine in the past: No -: Hypertension, kidney stones, thyroid disorder Past Surgical History: Reviewed- Non-Contributory - Family History Family History: Reviewed- Non-Contributory - Social History Smoking Status: Never smoker Smoking therapy provided: No Alcohol use: No CD- Drugs: No Caffeine use: No Place of Residence: Home Review of Systems 10-point ROS is otherwise unremarkable Physical Examination - Physical Exam General: Alert, Oriented x3, Oriented x2, Other (Chronic LE a locking) HEENT: Atraumatic, Normocephalic, PERRLA Neck: Supple, 2+ carotid pulse no bruit, JVD not distended Respiratory: Clear to auscultation bilaterally, Normal air movement Cardiovascular: No edema, Regular rate/rhythm, Normal S1 S2 Gastrointestinal: Normal bowel sounds, Soft and benign, Non-distended, No ascites, No tenderness Musculoskeletal: No clubbing, No swelling, No contractures Neurological: Normal gait, Normal speech, Normal strength at 5/5 x4 extr - Studies Laboratory Data (last 24 hrs) 10/22/19 14:43: Phosphorus 4.5 10/22/19 14:43: PT 12.5, INR 1.06, APTT 31.5 10/22/19 14:43: WBC 12.3 H D, Hgb 15.5 H, Hct 47.1 H, Plt Count 347 10/22/19 14:43: Sodium 138, Potassium 3.8, BUN 13, Creatinine 1.00, Glucose 71 L, Total Bilirubin 0.5, AST 36, ALT 26, Alkaline Phosphatase 101, Amylase 50, Lipase 297 Microbiology Data (last 24 hrs): 10/22/19 14:05 Stool Stool Occult Blood ([place]AS[place]Y) - Final FAMILY COACH Assessment and Plan - Problems (Diagnosis) (1) Diarrhea Current Visit: Yes Status: Acute (2) Hypoglycemia Current Visit: Yes Status: Acute (3) Thyroid disorder Current Visit: Yes Status: Acute (4) Hypotension Current Visit: Yes Status: Acute (5) Metabolic acidosis with normal anion gap and bicarbonate losses Current Visit: Yes Status: Acute Discharge Plan: Home Plan to discharge in: 48 Hours - Advance Directives Does patient have a Living Will: No Does patient have a Durable POA for Healthcare: No Physician Review: Patient Assessed, Agree with Above Assessment and Plan Physician Review Additional Text: Acute on chronic diarrhea-on clear etiology may be due to microscopic colitis Will consult GI-Dr. Luis Start patient on liquid diet for now. Follow-up Obtain stool culture/C diff/over and parasite Follow workup studies Metabolic acidosis-we does IV bicarb x1 now Start p.o. bicarb Due to diarrhea Hypoglycemia-corrected, start D5 NS for now Hypotension-obtain home meds, borderline low blood pressure now follow with IV hydration DVT prophylaxis-subcutaneous heparin. Advanced directives-full code Thyroid disorder-unclear type of thyroid disorder she have but noted borderline low tsh but free T4 normal
[2019-10-22] MEDS ORDERED: HYDRALAZINE HCL 20 MG/ML VIAL IV PRN (18:58)
[2019-10-22] MEDS ORDERED: SODIUM BICARB 50 MEQ/50ML VIAL IV ONE (19:00)
[2019-10-22] MEDS: D5 0.9 NS 1,000 ML IV SCH (21:51)
[2019-10-22] MEDS: SODIUM BICARB 325 MG TAB PO SCH (21:57)
[2019-10-22] MEDS: HEPARIN 5000 UNIT/ML 1 ML VIAL SQ SCH (22:19)
[2019-10-22 22:24] VITALS: BMI 28.0
[2019-10-23 04:29] LABS: Absolute Lymphocytes (CBC) 2.5 K/uL (0.7-4.9); Basophils % 0.4 % (0-1.3); Hematocrit 38.2 % (36.0-45.0); Lymphocytes % 27.9 % (15.3-44.8); MPV 10.6 fL (7.6-11.3)
[2019-10-23] MEDS: D5 0.9 NS 1,000 ML IV SCH ×2 (06:15→15:00)
[2019-10-23 06:21] LABS: ALT/SGPT 19 U/L (12-78); AST/SGOT 21 U/L (15-37); Alkaline Phosphatase 72 U/L (45-117); BUN Blood Urea Nitrogen 13 mg/dL (7-18); Bicarbonate 22 mmol/L (21-32); Bilirubin Direct < 0.1 mg/dL (0-0.2); Bilirubin Total 0.3 mg/dL (0.2-1.0); Glucose Level 110 mg/dL (74-106); HDL Cholesterol 34 mg/dL (40-60); LDL Cholesterol, Calculated 103 (<130); Protein, Total 5.4 g/dL (6.4-8.2); Sodium Level 143 mmol/L (136-145)
[2019-10-23 06:25] LABS: Potassium 2.9 mmol/L (3.5-5.1)
[2019-10-23] MEDS: KCL 20 MEQ/100 mL IVPB 20 MEQ/100 ML BAG IV SCH ×3 (07:29→14:17)
[2019-10-23] MEDS: SODIUM BICARB 325 MG TAB PO SCH (08:24)
[2019-10-23] MEDS: HEPARIN 5000 UNIT/ML 1 ML VIAL SQ SCH ×2 (08:24→21:50)
[2019-10-23] MEDS: PANTOPRAZOLE 40MG TABLET PO SCH ×2 (08:24→17:03)
[2019-10-23 14:45] LABS: C.diff Antigen/Toxin Ag neg : Tox neg (NEG : NEG)
--- NOTE | 2019-10-23 15:25 | P.PN ---
Subjective Date of Service: 10/23/19 Chief Complaint: Diarrhea weakness Subjective: No new changes, No C/O voiced Physical Examination - Vital Signs Temperature: 96.9 F Blood Pressure: 107/53 Pulse: 69 Respirations: 16 Pulse Ox (%): 100 - Physical Exam General: Alert, In no apparent distress, Oriented x3 HEENT: Atraumatic, Normocephalic, PERRLA Neck: Supple, 2+ carotid pulse no bruit, JVD not distended Respiratory: Clear to auscultation bilaterally, Normal air movement Cardiovascular: Normal pulses, Regular rate/rhythm, Normal S1 S2 Gastrointestinal: Normal bowel sounds, Soft and benign, Non-distended Musculoskeletal: No clubbing, No swelling Integumentary: No breakdown, No significant lesion Neurological: Normal speech, Normal strength at 5/5 x4 extr, Normal tone - Studies Laboratory Data (last 24 hrs) 10/22/19 14:43: Phosphorus 4.5 10/22/19 14:43: PT 12.5, INR 1.06, APTT 31.5 10/22/19 14:43: WBC 12.3 H D, Hgb 15.5 H, Hct 47.1 H, Plt Count 347 10/22/19 14:43: Sodium 138, Potassium 3.8, BUN 13, Creatinine 1.00, Glucose 71 L, Total Bilirubin 0.5, AST 36, ALT 26, Alkaline Phosphatase 101, Amylase 50, Lipase 297 Microbiology Data (last 24 hrs): 10/22/19 14:45 Blood - Blood Anaerobic Blood Culture - Final 10/22/19 15:00 Blood - Blood Anaerobic Blood Culture - Final Assessment And Plan - Current Problems (Diagnosis) (1) Diarrhea Current Visit: Yes Status: Acute (2) Hypoglycemia Current Visit: Yes Status: Acute (3) Thyroid disorder Current Visit: Yes Status: Acute (4) Hypotension Current Visit: Yes Status: Acute (5) Metabolic acidosis with normal anion gap and bicarbonate losses Current Visit: Yes Status: Acute Physician Review: Patient Assessed, Agree with Above Assessment and Plan Physician Review Additional Text: Acute on chronic diarrhea-improving but still poor po intake -pt express fear of eating due to post prandial cramps and vomiting - follow GI- Sweat -c/w diet -follow pending stool culture/C diff/over and parasite Metabolic acidosis-improved - will dc p.o. bicarb -Due to diarrhea Hypokalemia - due to correction of acidosis - start k-citrate bid Hypoglycemia-corrected,dc D5 NS for now Hypotension-improved ,c/w IV hydration DVT prophylaxis-subcutaneous heparin. Advanced directives-full code Thyroid disorder--likely due to sick euthyroid syndrome - noted borderline low tsh, low T3 but free T4 normal
[2019-10-23] MEDS: POTASSIUM 25 MEQ EFFERV TAB PO SCH (21:50)
[2019-10-23] MEDS: LORAZEPAM 0.5 MG TABLET PO PRN (21:50)
[2019-10-24 04:22] LABS: Potassium 3.6 mmol/L (3.5-5.1)
--- NOTE | 2019-10-24 07:18 | EKG ---
Test Date: 2019-10-22 Test Time: 15:29:30 Laborer: ELIE MEASUREMENT RESULTS: Intervals: Rate: 55 FL: 152 QRSD: 80 QT: 444 QTc: 424 [place]: P: 77 FL: 152 QRS: 14 T: 111 INTERPRETIVE STATEMENTS: Sinus bradycardia Nonspecific T wave abnormality Abnormal ECG Compared to ECG 03/14/2005 07:52:00 T-wave abnormality now present Electronically Signed On 10-24-19 07:15:23 CDT by Juan Carlos Glaser
[2019-10-24] MEDS: PANTOPRAZOLE 40MG TABLET PO SCH ×2 (07:30→16:40)
[2019-10-24] MEDS ORDERED: Ringers Lactate 1,000 ML IV ONE (09:01)
[2019-10-24 09:32] VITALS: O2SAT 100
[2019-10-24] MEDS ORDERED: propofoL 200 MG/20 ML VIAL IV ONE ×2 (09:49→09:57)
--- NOTE | 2019-10-24 10:13 | ENDO RPT ---
[address], [address] EGD PROCEDURE REPORT EXAM DATE: 10/24/2019 PATIENT NAME: Sara Cannon MR#: [id number] BIRTHDATE: 1950 ATTENDING: Vic Buck Dr STATUS: inpatient - 7 ON SITE SERVICES SPECIALIST: Aman Pond CST and Geneva Ferreira RN INDICATIONS: The patient is a 69 yr old Female here for an EGD due to chronic unexplained diarrhea, mid epigastric abdominal pain, and GERD PROCEDURE PERFORMED: EGD with biopsy MEDICATIONS: Per Anesthesia. TOPICAL ANESTHETIC: none CONSENT: The patient understands the risks and benefits of the procedure and understands that these risks include, but are not limited to: sedation, allergic reaction, infection, perforation and/or bleeding. Alternative means of evaluation and treatment include, among others: physical exam, x-rays, and/or surgical intervention. The patient elects to proceed with this endoscopic procedure. DESCRIPTION OF PROCEDURE: During intra-op preparation period all mechanical medical equipment was checked for proper function. Hand hygiene and appropriate measures for infection prevention was taken. Procedure, possible complications, and alternatives including but not limited to the possibility of bleeding, perforation, tear, infection, sepsis, need for surgery, need for blood transfusion, and anesthesia related complications were explained to the patient. After the risks, benefits and alternatives of the procedure were thoroughly explained, Informed consent was verified, confirmed and timeout was successfully executed by the treatment team. The patient was placed in the left lateral position. The patient was anesthetized with topical anesthesia. Through the anesthetized oropharyngeal area, the scope was passed without any difficulty. The Pentax [id number] ([id number]) endoscope was introduced through the mouth and advanced to the second portion of the duodenum. Retroflexed views revealed a small hiatal hernia. The gastroscope was then slowly withdrawn and removed. A Schatzki's ring was found in the lower esophagus. A small hiatal hernia was found Moderate gastritis was found in the total stomach. Multiple biopsies were obtained and sent to pathology. A sessile polyp was found in the body of the stomach. With jumbo forceps, a biopsy was obtained and sent to pathology. Duodenitis was found in the bulb of the duodenum. ADVERSE EVENTS: There were no complications. IMPRESSIONS: 1. Early Schatzki's ring in the lower esophagus (no history of dysphagia) 2. Small hiatal hernia 3. Moderate gastritis in the total stomach, s/p biopsies 4. 3 mm flat white polyp in the body of the stomach, s/p biopsy 5. Duodenitis in the bulb of the duodenum RECOMMENDATIONS: 1. await biopsy results 2. acid suppression therapy REPEAT EXAM: Vic Buck Dr eSigned: Vic Buck Dr 10/24/2019 10:13 AM cc: CPT CODES: ICD9 CODES: PATIENT NAME: Sara Cannon MR#: [id number]
[2019-10-24] MEDS: POTASSIUM 25 MEQ EFFERV TAB PO SCH ×2 (11:29→20:47)
[2019-10-24] MEDS: HEPARIN 5000 UNIT/ML 1 ML VIAL SQ SCH ×2 (11:30→20:47)
--- NOTE | 2019-10-24 16:51 | PN ---
Date of Progress Note: 10/24/2019 Subjective: Patient seen and examined. Chart reviewed and case discussed with RN. Patient had EGD today. Her treatment plan was explained. All questions were answered. I went over her EGD findings with her as well. Patient does report 4 episodes of diarrhea. Medications: List reviewed. Physical Examination: Vital Signs: Temperature 97.7, heart rate 77, blood pressure 108/54, respirations 16, O2 100% on room air. General: Awake, alert, oriented x3, in some mild distress. Elderly female. CV: S1, S2. Regular rate and rhythm. Peripheral pulses present. Respiratory: Moving air well bilaterally. No wheezing or stridor. No use of accessory muscles. Gastrointestinal: Abdomen is soft, nontender, nondistended. Positive bowel sounds. Extremities: No clubbing, cyanosis, or edema. Neuro: Cranial nerves 2 through 12 intact grossly. No focal neurological deficits. Speech is normal. Skin: No rashes. Normal skin turgor. Psych: Mood is okay. Affect is full. Insight and judgment are good. Laboratory Data: Sodium 147, potassium 3.6, chloride 118, CO2 of 21, BUN 9, creatinine 0.74, glucose 116, calcium 7.5. C diff assay is negative. Fecal leukocyte stain, no WBCs seen. Stool cultures pending. Occult blood also pending. Blood cultures, no growth to date. Assessment: A 69-year-old female with: 1. Acute on chronic diarrhea, improving; however, still has poor oral intake, has multiple episodes of diarrhea and hypotensive at this time. Clostridium difficile is negative. Stool cultures are pending. Ova and parasite also pending at this time. 2. Acute metabolic acidosis, improving, likely secondary to diarrhea. We will encourage p.o. intake. 3. Hypomagnesemia. We will replace and monitor. 4. Acute hypotension. Continue with IV fluids. Blood pressure still in the low 100s. 5. Acute gastritis and duodenitis. Continue with PPI b.i.d. 6. Stomach polyp, status post biopsy, found on esophagogastroduodenoscopy. 7. Schatzki ring. Patient does report some dysphagia. 8. Deep venous thrombosis prophylaxis. Patient is on heparin. Plan: We will continue to monitor. We will start on clear liquid diet and advance as tolerated. Encourage p.o. intake. Continue PPI b.i.d. We will discuss the case with Dr. Buck. Likely discharge in the next 24 to 48 hours depending on clinical stability, improvement in blood pressure, diarrhea, and ability to tolerate diet. Code status, full code. /SAP[employer]IRE Voice ID: [id number] Report ID: [id number] MTDD
[2019-10-24] MEDS: LORAZEPAM 0.5 MG TABLET PO PRN (20:48)
--- NOTE | 2019-10-24 21:27 | CON ---
Date of Consultation: 10/24/2019 Reason For Consultation: Diarrhea of 4 weeks' duration, midepigastric pain, gastric reflux disease, and hypokalemia. History Of Present Illness: The patient is a 69-year-old white female, who presented to the hospital with history of hypertension, renal stones, hypothyroidism, and admitted due to extreme weakness wit h worsening diarrhea over the past 4 weeks. She says she is also having midepigastric pain, reflux d isease with any p.o. intake over the past 3 weeks. Hypokalemia was noted with a potassium of 2.9. A cidosis and acidemia with her bicarb down to low at 18. White count was 12.8 on admission , it has decreased to 8.8 overnight with therapy it appears. Past Medical History: Significant for hypertension, kidney stones, and hypothyroidism. Home Medication List: See . Social History: She is with 2 children. No tobacco. No alcohol. Family History: Father of congestive heart failure. Mother of coronary artery disease, my ocardial infarction. Review of Systems: Patient has diarrhea, midepigastric pain, acid reflux disease, hypokalemia, weakness, malaise little bit. No chest pain, shortness of breath, seizure, syncope, lower extremity edema, muscle aches, join t aches, backaches, melena, hematochezia, hematemesis, coffee-grounds emesis. She did have nausea an d some right and left lower quadrant cramping occasionally. Physical Examination: Vital Signs: Patient is 5 foot, 148 pounds, BMI 28 kg sq m. General: She is well a well nourished female lying in bed, in mild distress due to her diarrhea and some midepigastric pain. HEENT: Normocephalic, atraumatic. Anicteric. Pupils equal, round, and reactive to light. Extraocu lar movements intact. Oropharynx is clear. Neck: Supple with no masses. Respirations: Clear on auscultation bilaterally. Cardiac: Regular rate and rhythm. No gallops. Abdomen: Positive bowel sounds. Soft, nondistended. Pain in the midepigastric area, greater than r ight and left lower quadrant tenderness. No peritoneal or Hewitt sign, no rebound, some mild guardin g in the midepigastric area, but otherwise negative. No hepatosplenomegaly. Extremities: No clubbing, cyanosis, or edema. 2+ pulses. Neuro: Alert and oriented x3. Grossly nonfocal. 5/5 motor strength. Intact sensation to light touc h. Laboratory Data: Patient has a white count of 8.8, down from 12.3 yesterday; hemoglobin 13.2, down f rom 15.5 yesterday; MCV 91, platelet count 255, polys of 55% down from 65%, lymphocytes 28%, monocyte s 13%, eosinophils 4%. She has a PT of 12.5, INR of 1.1, PTT of 31.5. Sodium of 147, potassium 3.6, chloride 118, bicarb 21, BUN of 9, creatinine of 0.74, glucose of 116, calcium 7.5. Yesterday, olu ent had total bilirubin 0.3, direct bilirubin less than 0.1, AST 21, ALT 19, alkaline phosphatase 72, total protein 5.4, albumin 2.0. Triglycerides 101, cholesterol 157, LDL of 103, but HDL is 34. Sharon lase 50, lipase 297. TSH low at 0.235, free T4 normal at 12.1. C diff toxin was negative till date. Impression: 1.Diarrhea, chronic over the past 4 weeks, 5-10 stools that are watery to loose every day. She has nausea with some right and left lower quadrant cramping as well. She denies any melena, hematochezia , , fevers, chills, night sweats. 2.No sick contacts. 3.Midepigastric pain with gastric reflux disease with any p.o. intake over the past 3 weeks. 4.Hypokalemia, potassium down to 2.9. 5.Acidemia with down to 8.8 overnight. Recommendation: 1.Replete electrolytes. 2.Continue IV fluids, IV antibiotics. 3.Check stool studies. 4.Check TSH, celiac panel, IBD panel. 5.Continue PPI therapy. 6.EGD now and later colonoscopy. 7.Patient with acidemia and sepsis is resolving with hospital admission and acidemia, need for the t kwasi for colonoscopy prep which can further treat her electrolyte shifts. SHAUNA/MODL Voice ID: [id number] Report ID: [id number]
[2019-10-25] MEDS: PANTOPRAZOLE 40MG TABLET PO SCH (05:19)
[2019-10-25 06:10] LABS: Potassium 4.2 mmol/L (3.5-5.1)
[2019-10-25] MEDS: POTASSIUM 25 MEQ EFFERV TAB PO SCH (08:14)
[2019-10-25] MEDS: HEPARIN 5000 UNIT/ML 1 ML VIAL SQ SCH (08:15)
[2019-10-25 12:23] VITALS: BP 136/62; TEMP 97
--- NOTE | 2019-10-26 03:20 | DS ---
Date of Discharge: 10/25/2019 Consultants: Dr. Buck. Procedures: On 10/24/2019, endoscopy. The patient found to have gastritis, duodenitis, polyp in the stomach which was biopsied as well as Schatzki's ring. Admitting Diagnoses: 1.Diarrhea. 2.Hyperglycemia. 3.Hypothyroidism. 4.Hypotension. 5.Metabolic acidosis. Discharge Diagnoses: 1.Acute on chronic diarrhea, improving. 2.Acute metabolic acidosis, resolving. 3.Hypocalcemia, replaced. 4.Acute hypotension, resolving. 5.Acute gastritis and duodenitis. Continue PPI. 6.Stomach polyps status post biopsy. 7.Schatzki ring and minimal dysphagia. Hospital Course: Patient is a 69-year-old female with past medical history of hypertension, kidney s tones, hypothyroidism, admitted for worsening diarrhea. She has had chronic diarrhea for the past 5 months. Patient was seen by Dr. Buck, GI, and EGD was done, which showed findings as stated above. Patient was continued PPI. Patient was ruled out for C diff. Overall, the patient's diarrhea impr mahesh. White count normalized. Patient did have some electrolyte abnormalities including hypokalemia , which was improved and corrected likely due to her diarrhea. The acidosis also improved. Stool st udies are pending at this time. Fecal leukocytes were negative. Blood cultures were negative to edwige e. Patient's diet was advanced. She was able to tolerate her diet and she was stable for discharge the patient to follow up with primary care physician in 2-3 days, follow up with GI Dr. Buck in 2 w eeks. Return to ER for worsening condition. Medications: As per medication reconciliation list. She will be on PPI b.i.d. Physical Examination: General: Awake, alert, oriented x3 elderly female. CV: S1,S2. Respiratory: Moving air well bilaterally. Abdomen: Soft, nontender, nondistended. Positive bowel sounds. Extremities: No clubbing, cyanosis, or edema. Neurologic: Nonfocal. Total time spent discharging patient was 37 minutes. SA/MODL Voice ID: [id number] Report ID: [id number]
[2019-10-27 23:20] LABS: Lactoferrin, Stool 33.8 mcg/mL (<30.0)
== END 2019-10-25 15:52 | disposition home or self-care (01) | DRG 392 ==
LOC: ER 12:45 → ERHOLD 18:44 → 2ND 20:36
PROVIDERS: ADMIT Internal Medicine; ATTEND Family Medicine
PROC: 0DB68ZX Excision of Stomach, Via Natural or Artificial Opening Endoscopic, Diagnostic (ICD-10-PCS; principal; 2019-10-24 08:30)
DX: K29.70 Gastritis, unspecified, without bleeding (principal); E87.2 Acidosis; K22.2 Esophageal obstruction; I10 Essential (primary) hypertension; E16.2 Hypoglycemia, unspecified; E07.9 Disorder of thyroid, unspecified; I95.9 Hypotension, unspecified; K21.9 Gastro-esophageal reflux disease without esophagitis; E87.6 Hypokalemia; K31.7 Polyp of stomach and duodenum; K44.9 Diaphragmatic hernia without obstruction or gangrene; K29.80 Duodenitis without bleeding; E86.0 Dehydration; Z88.1 Allergy status to other antibiotic agents; Z88.0 Allergy status to penicillin; Z88.8 Allergy status to other drugs, medicaments and biological substances
CPT/HCPCS: 36415; 71045; 80048; 80053; 80061; 80076; 81015; 82150; 82248; 82274; 82550; 82553; 82705; 82947; 83605; 83631; 83690; 84100; 84132; 84145; 84436; 84443; 84481; 85025; 85610; 85730; 86038; 86850; 86870; 86900; 86901; 87040; 87045; 87046; 87177; 87209; 87324; 87449; 88305; 88312; 89055; 93005; 96374; 96375; 99285; J1644; J2405; J2550; J2704; J7030; J7042; J7120